=== PATIENT | female | born 1985 | race Caucasian/White ===

== ENCOUNTER 2022-06-24 14:51 | Outpatient (CLI) | payer OTHER ==
[2022-06-24 16:13] LABS: Hemoglobin 12.7 g/dL (12.0-15.5); Mean Corpuscular HGB CONC 33.6 g/dL (32.0-36.0); Mean Corpuscular Hemoglobin 28.4 pg (27.0-33.0); Mean Corpuscular Volume 84.6 fl (81.6-98.3); Mean Platelet Volume 10.6 fl (7.4-10.4); Platelet Count 280 10x3/uL (150-450); RBC Distribution Width 13.2 % (11.5-14.5); Red Blood Cell (RBC) Count 4.47 10x6/uL (3.90-5.03)
[2022-06-24 16:33] LABS: Anion Gap 13 mmol/L (10-20); BUN (Urea Nitrogen) 8 mg/dL (7.0-18.7); Calc. Creatinine Clearance 0 mL/min (70-130); Calcium 9.2 mg/dL (7.8-10.44); Carbon Dioxide 25 mmol/L (22-29); Chloride 106 mmol/L (98-107); Estimated GFR 108; Glucose 95 mg/dL (70-105); Potassium 3.9 mmol/L (3.5-5.1); Sodium 140 mmol/L (136-145)
== END 2022-06-24 14:52 | disposition home or self-care (01) ==
LOC: LABBT 14:51
PROVIDERS: ATTEND Neurological Surgery
DX: Z01.818 Encounter for other preprocedural examination (principal); M54.12 Radiculopathy, cervical region
CPT/HCPCS: 80048; 85027; 93005; 93010

== ENCOUNTER 2022-06-28 07:44 | Day surgery (SDC) | payer OTHER ==
[2022-06-28] MEDS ORDERED: fentaNYL Citrate/PF 100 MCG/2 ML SYRINGE ONE (10:04)
[2022-06-28] MEDS ORDERED: CEFAZOLIN 2 GM VIAL ONE (10:08)
[2022-06-28] MEDS ORDERED: Sodium Chloride 0.9% 100 ML ONE (10:08)
[2022-06-28] MEDS ORDERED: NEOSTIGMINE 3 MG/3 ML SYR 3 MG/3 ML SYRINGE ONE (10:22)
[2022-06-28] MEDS ORDERED: Dexamethasone 20 MG/5 ML VIAL ONE (10:22)
[2022-06-28] MEDS ORDERED: Ondansetron PF 4 MG/2 ML Vial ONE (10:22)
[2022-06-28] MEDS ORDERED: Ketorolac Tromethamine 30 MG/ML VIAL ONE (10:22)
[2022-06-28] MEDS ORDERED: PROPOFOL 200 MG/20 ML VIAL ONE (10:22)
[2022-06-28] MEDS ORDERED: Glycopyrrolate 0.2 MG/ML 5 ML SYRINGE ONE (10:22)
[2022-06-28] MEDS ORDERED: Rocuronium Bromide 10 MG/ML (10ML VIAL) ONE (10:22)
[2022-06-28] MEDS ORDERED: Meperidine HCl/PF 25 MG/ML VIAL ONE (11:21)
[2022-06-28 11:24] VITALS: BMI 25.1
[2022-06-28] MEDS ORDERED: Fentanyl 100 MCG/2 ML VIAL ONE ×3 (11:37→12:19)
[2022-06-28] MEDS ORDERED: HYDROmorphone 0.5 MG/0.5 ML SYRINGE ONE (12:27)
[2022-06-28] MEDS ORDERED: Cyclobenzaprine 10 MG TAB ONE (12:51)
[2022-06-28] MEDS ORDERED: HYDROcodone/Acetaminophen 5/325 mg Tablet ONE (13:30)
== END 2022-06-28 14:40 | disposition home or self-care (01) ==
LOC: SDC 07:44
PROVIDERS: ATTEND Neurological Surgery
PROC: 0RG10A0 Fusion of Cervical Vertebral Joint with Interbody Fusion Device, Anterior Approach, Anterior Column, Open Approach (ICD-10-PCS; principal; 2022-06-28)
DX: M50.122 Cervical disc disorder at C5-C6 level with radiculopathy (principal); M48.02 Spinal stenosis, cervical region
CPT/HCPCS: C1713; J1100; J1170; J1885; J2175; J2405; J2704; J3010; J3490

== ENCOUNTER 2022-07-20 12:57 | Outpatient (CLI) | payer OTHER | END 2022-07-20 12:58 | disposition home or self-care (01) | LOC: TBSIIMAG 12:57 | PROVIDERS: ATTEND Neurological Surgery | DX: M54.12 Radiculopathy, cervical region (principal); Z98.1 Arthrodesis status | CPT/HCPCS: 72040 ==